=== PATIENT | male | born 1965 | race Caucasian/White ===

== ENCOUNTER 2018-10-13 15:49 | Inpatient (IN) ==
--- NOTE | 2018-10-13 15:56 | Emergency Department Note ---
ED Disposition Clinical Impression: Agitation, Substance abuse Amphetamine overdose Qualifiers: Encounter type: initial encounter Injury intent: undetermined intent Qualified Code(s): T43.624A - Poisoning by amphetamines, undetermined, initial encounter Altered mental status Qualifiers: Altered mental status type: delirium Qualified Code(s): R41.0 - Disorientation, unspecified Rhabdomyolysis Qualifiers: Rhabdomyolysis type: non-traumatic Qualified Code(s): M62.82 - Rhabdomyolysis Disposition: Admitted as Observation Condition on Discharge: Serious Referrals: Provider,Referral, MD [Primary Care Provider] - - Critical Care Critical Care Time: Yes Attestation: On , the high probability of a clinically significant, sudden or life threatenin g deterioration of the following system(s) required my full and direct attention, intervention and personal management. The time I documented below is in addition to time spent performing reported procedures but includes the following listed in this critical care notation. Total Critical Care Time: 40 Vital system(s) involved:: Central Nervous System My critical care processes included: Assessment & monitoring of V/S, Initial and Re-exams, Data Review/Interpretation, Coordinating Care, Medication Orders and management, Documentation Medical Decision Making - Olivier Inquiry Pt receiving controlled substance: Yes Olivier was queried for this patient: Yes Reference #:: [id number] Risks and benefits of using a controlled substance: were not discussed with pt by me Comment: 2 rxs for hydrocodone/apap, 20 each 09/25/18, 09/27/18 Vital Signs: 10/13/18 15:50 10/13/18 16:20 10/13/18 16:25 Temperature 96.3 F L Temperature Source Oral Pulse Rate [Left Radial] 105 H 104 H 113 H Respiratory Rate 16 20 Blood Pressure [Right Arm] 138/83 138/83 137/84 Blood Pressure Mean [Right Arm] 101 101 101 Blood Pressure Source [Right Arm] Automatic Cuff Automatic Cuff Blood Pressure Position [Right Arm] Sitting Sitting 02 Sat by Pulse Oximetry 93 L 97 94 L Oxygen Delivery Method Room Air Room Air 10/13/18 16:30 10/13/18 16:46 10/13/18 17:00 Temperature Temperature Source Pulse Rate [Left Radial] 105 H 106 H 106 H Respiratory Rate 20 Blood Pressure [Right Arm] 135/74 122/53 L 133/85 Blood Pressure Mean [Right Arm] 94 76 101 Blood Pressure Source [Right Arm] Automatic Cuff Blood Pressure Position [Right Arm] Sitting 02 Sat by Pulse Oximetry 93 L 97 97 Oxygen Delivery Method Room Air 10/13/18 17:23 10/13/18 17:30 Temperature Temperature Source Pulse Rate [Left Radial] 107 H 102 H Respiratory Rate Blood Pressure [Right Arm] 128/86 144/85 H Blood Pressure Mean [Right Arm] 100 104 Blood Pressure Source [Right Arm] Blood Pressure Position [Right Arm] 02 Sat by Pulse Oximetry 97 97 Oxygen Delivery Method - Lab Data Lab Results 10/13/18 15:40: WBC 11.5 H, RBC 5.48, Hgb 16.1, Hct 46.0, MCV 84.0, MCH 29.5, MCHC 35.1, RDW 13.2, Plt Count 353, MPV 8.5, Neut % (Auto) 60.6, Lymph % (Auto) 27.0, [place] % (Auto) 9.2, Eos % (Auto) 1.8, Baso % (Auto) 1.4, Neut # (Auto) 7.0, Lymph # (Auto) 3.1, [place] # (Auto) 1.1 H, Eos # (Auto) 0.2, Baso # (Auto) 0.2 10/13/18 15:40: PT 10.4, INR 1.01 10/13/18 15:40: Urine Color Yellow, Urine Appearance Sl cloudy, Urine pH 5.5, Ur Specific [place] >= 1.030, Urine Protein Trace, Urine Glucose (UA) Negative, Urine Ketones Negative, Urine Blood 3+, Urine Nitrate Negative, Urine Bilirubin Negative, Urine Urobilinogen 0.2, Ur Leukocyte Esterase Negative, Urine RBC 20- 50, Urine WBC 5-10, Ur Squamous Epith Cells 20-50, Urine Bacteria 4+ A 10/13/18 15:40: Sodium 147 H, Potassium 4.3, Chloride 107, Carbon Dioxide 25, Anion Gap 19.3 H, BUN 32 H, Creatinine 1.54 H, Estimated Creat Clear 73, Estimated GFR 48 L, Est GFR ( Amer) 58 L, Glucose 83, Calcium 10.0, Total Bilirubin 1.0, AST 51 H, ALT 42, Alkaline Phosphatase 115, Total Creatine Kinase 733 H*, Troponin I < 0.02, Total Protein 8.6 H, Albumin 4.4, Globulin 4.2 H, Albumin/Globulin Ratio 1.0 L, Salicylates 11.6, Acetaminophen 0 L, Plasma/Serum Alcohol 0 10/13/18 15:40: Urine Opiates Screen Negative, Urine Methadone Screen Negative, Ur Barbituates Screen Negative, Ur Phencyclidine Scrn Negative, Ur Amphetamines Screen Positive H, U Benzodiazepines Scrn Negative, Urine Cocaine Screen Negative, U Marijuana (THC) Screen Negative 10/13/18 15:40: Lactate 4.4 H 10/13/18 16:23: Ammonia 43 10/13/18 16:25: Specimen Source Right radial, O2 % room air, ABG pH 7.33 L, ABG pCO2 43.0, ABG pO2 82.6, ABG HCO3 22.4, ABG Total CO2 23.7, ABG O2 Saturation 95, ABG Base Excess -3.5 L, Zohaib Test Patient unable Result diagrams: 10/13/18 15:40 10/13/18 15:40 Orders (Tests/Meds): ED MEDICATIONS Generic Name Dose Route Start Last Admin Trade Name Freq PRN Reason Stop Dose Admin Sodium Chloride 10 ml 10/13/18 16:00 Saline Flush 10ml Syringe IV 11/12/18 15:59 NEEDED PRN Maintain IV Site Discontinued Medications Generic Name Dose Route Start Last Admin Trade Name Freq PRN Reason Stop Dose Admin Diphenhydramine HCl 50 mg 10/13/18 16:03 10/13/18 16:09 Benadryl 50mg/1ml Vial IM 10/13/18 16:04 50 mg ONCE ONE Administration Haloperidol Lactate 5 mg 10/13/18 16:03 10/13/18 16:08 Haldol 5mg/Ml Vial IM 10/13/18 16:04 5 mg ONCE ONE Administration Haloperidol Lactate 5 mg 10/13/18 16:03 10/13/18 16:10 Haldol 5mg/Ml Vial IM 10/13/18 16:04 5 mg ONCE ONE Administration Sodium Chloride 1,000 mls @ 999 mls/hr 10/13/18 16:15 10/13/18 16:11 Sod Chlor 0.9% 1000ml Bag IV 10/13/18 17:15 999 mls/hr .Q1H1M ALEXIA Administration Lorazepam 2 mg 10/13/18 16:03 10/13/18 16:09 Ativan 2mg/Ml Vial IM 10/13/18 16:04 2 mg ONCE ONE Administration ORDERS Category Date Time Status Urine Culture(cathed specimen) Stat Micro 10/13/18 15:40 Received - ECG Data Tracing #1 EKG interpreted by Mekhi Hickman MD: Rhythm: sinus tachycardia Rate: 107 [place]: normal Ectopy: none Conduction: normal ST Segment Changes: none T Wave Changes: none Q Waves: none No evidence of acute ischemia or injury - Physician Consults Physician Consulted: Rajinder Time: 17:42 Reason -: Admission Comment/Response: Agrees to admit the patient to the hospital. We discussed the patient's clinical information, including history, exam, laboratory and radiology results and ED course. Per hospital procedure, I will write temporary bridge inpatient orders on the patient. Specific orders requested by the admitting physician: Haldol and Ativan as needed. IV fluids. Recheck labs in the morning. - Reevaluation(s) Time: 17:30 Reevaluation #1: Patient rechecked multiple times. Sleeping since Haldol administered. Vital signs stable. General Adult HPI - General Stated complaint: COMBATIVE Time Seen by Provider: 10/13/18 15:49 - History of Present Illness HPI narrative: Brought in by police and EMS and patient was seen on arrival. Initial call was for somebody vomiting in front of a bar. The patient is combative and agitated. Police report that he is a suspected methamphetamine user. Patient is unable to provide any history. - Related Data Home Medications Medication Instructions Recorded Confirmed Unobtainable 10/13/18 10/13/18 Allergies Allergy/AdvReac Type Severity Reaction Status Date / Time ciprofloxacin [CIPROFLOXACIN] Allergy Unknown I-HIVES Verified 11/05/17 07:51 [facility] History - Hepatitis A Screen Attestation statement:: This patient has been screened for Hepatitis A risk factors. Medical History: Denies:: Diabetes Mellitus Type 1, Diabetes Mellitus Type 2 - Social History Smoking Status: Current every day smoker Tobacco Type: cigarettes Alcohol Intake: never Substance Use Type: marijuana ROS Obtained: Yes unobtainable due to mental status Physical Exam - General General appearance: other Comment: Extremely agitated and combative. Thrashing about in bed. Had to be placed in four-point restraints immediately upon arrival. Will intermittently suddenly stop screaming and fighting and lay with his eyes closed for a minute or 2, apparently unresponsive, and then will suddenly began screaming and fighting again. Difficult to understand, edentulous. - Head Head exam: atraumatic, normocephalic - Eye Eye exam: Present: PERRL, EOMI - ENT ENT exam: Present: mucous membranes moist - Neck Neck exam: Present: full ROM - Chest Chest inspection: Present: normal inspection, symmetric chest wall rise - Respiratory Respiratory exam: Present: normal lung sounds bilaterally - Cardiovascular Cardiovascular exam: Present: tachycardia, normal heart sounds - Abdominal Exam Abdominal exam: Absent: distention - Extremities Exam Extremities exam: Present: other (Track jones consistent with intravenous drug abuse) - Neurological Exam Neurological exam: Present: other (Extreme agitation. No apparent focal deficits. Moving all 4 extremities with equal strength.) - Psychiatric Psychiatric exam: Present: agitated - Skin Skin exam: Present: warm, dry
[2018-10-13 16:12] LABS: Basophils # 0.2 K/mm3 (0-0.2); Basophils % 1.4 % (0.1-2.0); Eosinophils # 0.2 K/mm3 (0.0-0.4); Eosinophils % 1.8 % (0.1-12.0); Hemoglobin 16.1 g/dL (14.1-18.0); Lymphocytes # 3.1 K/mm3 (0.7-4.5); Mean Corpuscular HGB Conc 35.1 g/dL (31.8-35.4); Mean Corpuscular Hemoglobin 29.5 pg (27.0-31.2); Mean Platelet Volume 8.5 fl (7.4-10.4); Monocytes # 1.1 K/mm3 (0.1-1.0); Monocytes % 9.2 % (1.7-9.3); Neutrophils % 60.6 % (37.0-80.0); Platelet Count 353 K/mm3 (142-424); Red Blood Count 5.48 M/mm3 (4.60-6.20); Red Cell Distribution Width 13.2 % (11.5-17.5); White Blood Count 11.5 K/mm3 (4.8-10.8)
[2018-10-13 16:15] LABS: INR 1.01 (0.9-1.1); Prothrombin Time 10.4 seconds (9.4-11.8)
[2018-10-13 16:26] LABS: Amphetamine/Metha Screen,Urine Positive ng/mL (<1000); Barbiturates Screen,Urine Negative ng/mL (<200); Benzodiazepines Screen,Urine Negative ng/mL (<200); Cannabinoid Screen,Urine Negative ng/mL (<50); Cocaine Screen,Urine Negative ng/mL (<300); Methadone Screen,Urine Negative ng/mL (<300); Opiate Screen,Urine Negative ng/mL (<300); Phencyclidine Screen,Urine Negative ng/mL (<25)
[2018-10-13 16:27] LABS: Acetaminophen 0 ug/mL (10-30); Alanine Aminotransferase 42 U/L (12-78); Albumin Level 4.4 gm/dL (3.4-5.0); Alkaline Phosphatase 115 U/L (46-116); Anion Gap 19.3 mEq/L (5-15); Aspartate Amino Transferase 51 U/L (15-37); Blood Urea Nitrogen 32 mg/dL (7-18); Carbon Dioxide 25 mmol/L (21.0-32.0); Chloride 107 mmol/L (98-107); Creatine Kinase 733 U/L (39-308); Ethyl Alcohol 0 mg/dL (0-99); Globulin 4.2 gm/dl (1.3-3.2); Glucose 83 mg/dL (74-106); Potassium 4.3 mmoL/L (3.5-5.1); Salicylate 11.6 mg/dL (2.8-20.0); Sodium 147 mmol/L (136-145); Total Protein,Serum 8.6 gm/dL (6.4-8.2)
[2018-10-13 16:43] LABS: ABG Base Excess -3.5 mmol/L (-2.4-2.3); ABG HCO3 22.4 mmhg (22.0-26.0); ABG Oxygen Saturation 95 % (90-100); ABG PH 7.33 mmol/L (7.35-7.45); ABG PO2 82.6 mmhg (80-100); ABG TCO2 23.7 mmhg (23-27)
[2018-10-13 16:45] LABS: Allen's Test Patient Unable; Oxygen room air %
[2018-10-14 06:51] LABS: Anion Gap 15.9 mEq/L (5-15); Potassium 3.9 mmoL/L (3.5-5.1)
--- NOTE | 2018-10-14 07:32 | History & Physical Report ---
*Admission Date: 10/13/18 *Chief complaint: Drug use *History of present illness: 53-year-old male with history of methamphetamine use was brought to the emergency department yesterday after being found unconscious. Patient awakened in the emergency department and was quite combative requiring physical restr aints as well as administration of Haldol and Ativan. Workup proceeded and there were no significant lab abnormalities other than an elevated lactic acid. Patient was given the appropriate fluid bolus and repeat lactic acid was within a normal range. Because the patient was incapacitated and required restraints decision was made to admit him to the hospital. Since arrival to the [facility] floor patient has remained asleep except for brief periods of time where he will awaken thrash about the bed and then calm down. Nursing staff reports he does seem to hear when he is spoken to and will calm down when spoken to. The patient has been kept in restraints as he was deemed a potential danger to not only himself but to staff. This morning the patient raises his head off the bed and will open one eye to make eye contact with me. He then lays his head back down and falls back asleep. [facility] History I have reviewed the patient's past medical history: Yes Medical History: Denies:: Diabetes Mellitus Type 1, Diabetes Mellitus Type 2 *Have you ever received a pneumonia vaccine?: No *Have you received a flu vaccine this season?: No Comment:: Methamphetamine use - *Social History Smoking Status: Current every day smoker Tobacco Type: cigarettes # Packs/Day (cigarettes): 1 Alcohol Intake: former Substance Use Type: methamphetamine Last Used Substance: just [employer] *Occupational Status:: other *Travel in the last 8 weeks: None - Psychiatric History Expresses thoughts of harming self/others: None Suicide Plan Description: No Plan Family Hx:: Unable to obtain Review of Systems - Review of Systems Review of systems:: unable to obtain Meds Home Medications Medication Instructions Recorded Confirmed Type Unobtainable 10/13/18 10/13/18 History Allergies Allergy/AdvReac Type Severity Reaction Status Date / Time ciprofloxacin [CIPROFLOXACIN] Allergy Unknown I-HIVES Verified 11/05/17 07:51 Exam Vital signs and Labs for Last 24 Hours: Temp Pulse Resp BP Pulse Ox 97.6 F 60 18 106/52 L 97 10/14/18 04:00 10/14/18 04:00 10/14/18 04:00 10/14/18 04:00 10/14/18 04:00 Laboratory Results - last 24 hr 10/13/18 15:40: WBC 11.5 H, RBC 5.48, Hgb 16.1, Hct 46.0, MCV 84.0, MCH 29.5, MCHC 35.1, RDW 13.2, Plt Count 353, MPV 8.5, Neut % (Auto) 60.6, Lymph % (Auto) 27.0, [place] % (Auto) 9.2, Eos % (Auto) 1.8, Baso % (Auto) 1.4, Neut # (Auto) 7.0, Lymph # (Auto) 3.1, [place] # (Auto) 1.1 H, Eos # (Auto) 0.2, Baso # (Auto) 0.2 10/13/18 15:40: PT 10.4, INR 1.01 10/13/18 15:40: Urine Color Yellow, Urine Appearance Sl cloudy, Urine pH 5.5, Ur Specific [employer] >= 1.030, Urine Protein Trace, Urine Glucose (UA) Negative, Urine Ketones Negative, Urine Blood 3+, Urine Nitrate Negative, Urine Bilirubin Negative, Urine Urobilinogen 0.2, Ur Leukocyte Esterase Negative, Urine RBC 20- 50, Urine WBC 5-10, Ur Squamous Epith Cells 20-50, Urine Bacteria 4+ A 10/13/18 15:40: Sodium 147 H, Potassium 4.3, Chloride 107, Carbon Dioxide 25, Anion Gap 19.3 H, BUN 32 H, Creatinine 1.54 H, Estimated Creat Clear 73, Estimated GFR 48 L, Est GFR ( Amer) 58 L, Glucose 83, Calcium 10.0, Total Bilirubin 1.0, AST 51 H, ALT 42, Alkaline Phosphatase 115, Total Creatine Kinase 733 H*, Troponin I < 0.02, Total Protein 8.6 H, Albumin 4.4, Globulin 4.2 H, Albumin/Globulin Ratio 1.0 L, Salicylates 11.6, Acetaminophen 0 L, Plasma/Serum Alcohol 0 10/13/18 15:40: Urine Opiates Screen Negative, Urine Methadone Screen Negative, Ur Barbituates Screen Negative, Ur Phencyclidine Scrn Negative, Ur Amphetamines Screen Positive H, U Benzodiazepines Scrn Negative, Urine Cocaine Screen Negative, U Marijuana (THC) Screen Negative 10/13/18 15:40: Lactate 4.4 H 10/13/18 16:23: Ammonia 43 10/13/18 16:25: Specimen Source Right radial, O2 % room air, ABG pH 7.33 L, ABG pCO2 43.0, ABG pO2 82.6, ABG HCO3 22.4, ABG Total CO2 23.7, ABG O2 Saturation 95, ABG Base Excess -3.5 L, Zohaib Test Patient unable 10/13/18 19:59: Lactate 0.5 10/14/18 04:19: POC Glucose 89 10/14/18 06:10: Sodium 146 H, Potassium 3.9, Chloride 111 H, Carbon Dioxide 23, Anion Gap 15.9 H, BUN 24 H, Creatinine 1.05 D, Estimated Creat Clear 86, Estimated GFR 74, Est GFR ( Amer) 90 D, Glucose 65 L D, Total Creatine Kinase 3243 H* D I & O for Last 24 hours: Intake & Output 10/11/18 10/12/18 10/13/18 10/14/18 11:59 11:59 11:59 11:59 Intake Total 4155 / 4155 Output Total 1050 / 1050 Balance 3105 / 3105 Weight 161 lb 2 oz Narrative: Patient is laying in bed. He is restrained at the wrists and ankles. Pupils are constricted. He does try to shut his eyes when the pin light is shining to them. Oropharynx is dry. Neck has no lymphadenopathy. Lungs are clear. Heart has a regular rate and rhythm. Abdomen is thin and soft. Skin exam reveals multiple tattoos. Neurologic exam is limited but patient does have motor and sensory functions intact. Assessment and Plan (1) Amphetamine overdose Current visit: Yes Status: Acute Qualifiers: Encounter type: initial encounter Injury intent: undetermined intent Qualified Code(s): T43.624A - Poisoning by amphetamines, undetermined, initial encounter Category: Medical Code(s): T43.621A - Poisoning by amphetamines, accidental (unintentional), initial encounter (2) Altered mental status Current visit: Yes Status: Acute Qualifiers: Altered mental status type: delirium Qualified Code(s): R41.0 - Disorient ation, unspecified Category: Medical Code(s): R41.82 - Altered mental status, unspecified (3) Rhabdomyolysis Current visit: Yes Status: Acute Qualifiers: Rhabdomyolysis type: non-traumatic Qualified Code(s): M62.82 - Rhabdomyolysis Category: Medical Code(s): M62.82 - Rhabdomyolysis (4) Substance abuse Current visit: Yes Status: Acute Category: Medical Code(s): F19.10 - Other psychoactive substance abuse, uncomplicated (5) Hypoglycemia Current visit: Yes Status: Acute Category: Medical Code(s): E16.2 - Hypoglycemia, unspecified - Assessment and plan all Dx Assessment and Plan for all problems:: 1. Patient is been given an amp of D50 this morning due to mild hypoglycemia 2. Continue IV fluids although I will change these to D5 half-normal saline with potassium 3. At this time because the patient has not demonstrated full awareness of his situation I am going to choose to keep him in restraints to avoid harming himself and potentially harming others. Once the patient awakens and is able to demonstrate he can stay awake I do believe we will be able to discontinue the restraints. Patient simply needs to be oriented to his situation
[2018-10-14 09:38] LABS: Calcium 8.3 mg/dL (8.5-10.1)
--- NOTE | 2018-10-14 09:46 | Pharmacy Consult Notes ---
[facility] Pharmacy VTE Monitoring - Patient Demographics Admission date: 10/13/18 Report Date: 10/14/18 Time: 09:45 Allergies/Adverse Reactions: Patient Allergies ciprofloxacin [CIPROFLOXACIN] Allergy (Unknown, Verified 11/05/17 07:51) I-HIVES Height: 1.85 m Weight: 73.085 kg Patient Problems: Current Active Problems Amphetamine overdose (Acute) Altered mental status (Acute) Agitation (Acute) Rhabdomyolysis (Acute) Substance abuse (Acute) Hypoglycemia (Acute) - VTE Risk Labs: VTE Related Lab Results Hgb 16.1 g/dL (14.1-18.0) 10/13/18 15:40 Hct 46.0 % (42.0-52.0) 10/13/18 15:40 Plt Count 353 K/mm3 (142-424) 10/13/18 15:40 PT 10.4 seconds (9.4-11.8) 10/13/18 15:40 INR 1.01 (0.9-1.1) 10/13/18 15:40 BUN 24 mg/dL (7-18) H 10/14/18 06:10 Creatinine 1.05 mg/dL (0.70-1.30) D 10/14/18 06:10 Estimated Creat Clear 86 mL/min (50-200) 10/14/18 06:10 - Prophylaxis VTE Prophylaxis Ordered?: Yes Types of VTE Prophylaxis: TEDS Knee High Location of Applied Device: Bilateral Lower Extremeties
--- NOTE | 2018-10-15 07:40 | Progress Note ---
Internal Medicine - PN: Subj *Date: 10/15/18 *Time: 07:38 Interval history: Patient has no complaints this morning. He is awake and eating breakfast. He does not know what day of the week it is. He cannot tell me the last thing he remembers. He does not recall any of the events that led to him being hospitalized. He does claim that he is homeless Exam Vital signs and Labs for Last 24 Hours: Temp Pulse Resp BP Pulse Ox 97.8 F 62 12 104/60 L 98 10/15/18 04:00 10/15/18 04:00 10/15/18 04:00 10/15/18 04:00 10/15/18 04:00 Laboratory Results - last 24 hr 10/14/18 06:10: Calcium 8.3 L D 10/14/18 07:29: POC Glucose 193 H I & O for Last 24 hours: Intake & Output 10/12/18 10/13/18 10/14/18 10/15/18 11:59 11:59 11:59 11:59 Intake Total 4155 / 4155 1454 / 1454 Output Total 1050 / 1050 700 / 700 Balance 3105 / 3105 754 / 754 Weight 161 lb 2 oz Microbiology Reports for the Last 24 Hours: Microbiology 10/13/18 15:40 Urine,Catheterized Urine Culture - Preliminary NO GROWTH AFTER 24 HOURS Narrative: He is in no distress. He does seem quite irritable this morning. Lungs are clear to auscultation. Heart has a regular rate and rhythm. Assessment and Plan (1) Amphetamine overdose Current visit: Yes Status: Acute Qualifiers: Encounter type: initial encounter Injury intent: undetermined intent Qualified Code(s): T43.624A - Poisoning by amphetamines, undetermined, initial encounter Category: Medical Code(s): T43.621A - Poisoning by amphetamines, accidental (unintentional), initial encounter (2) Altered mental status Current visit: Yes Status: Acute Qualifiers: Altered mental status type: delirium Qualified Code(s): R41.0 - Disorientation, unspecified Category: Medical Code(s): R41.82 - Altered mental status, unspecified (3) Rhabdomyolysis Current visit: Yes Status: Acute Qualifiers: Rhabdomyolysis type: non-traumatic Qualified Code(s): M62.82 - Rhabdomyolysis Category: Medical Code(s): M62.82 - Rhabdomyolysis (4) Substance abuse Current visit: Yes Status: Acute Category: Medical Code(s): F19.10 - Other psychoactive substance abuse, uncomplicated (5) Hypoglycemia Current visit: Yes Status: Acute Category: Medical Code(s): E16.2 - Hypoglycemia, unspecified (6) Homeless single person Current visit: Yes Status: Acute Category: Social Hx Code(s): Z59.0 - Homelessness - Assessment and plan all Dx Assessment and Plan for all problems:: 1. Stop IV fluids 2. DC Gallegos catheter to allow ambulation 3. Care management consult
== END 2018-10-15 19:19 | disposition left against medical advice (07) | DRG 918 ==
LOC: 2ND 15:49 → ER 15:49 → OBSVTOIN 18:03 → 2ND 18:21
PROVIDERS: ADMIT Family Medicine; ATTEND Family Medicine

== ENCOUNTER → 2019-02-07 13:22 | Outpatient (POV) | payer BC, SELFPAY | DX: Z00.00 Encounter for general adult medical examination without abnormal findings (principal) ==